=== PATIENT | female | born 2000 | race Hispanic/Latino ===

== ENCOUNTER 2022-02-24 06:21 | Day surgery (SDC) | payer BC ==
[2022-02-23 15:47] VITALS: BMI 27.2
[2022-02-24] MEDS ORDERED: CEFAZOLIN 2 GM VIAL ONE (06:36)
[2022-02-24] MEDS ORDERED: Lidocaine 1% MPF 2 ML VIAL ONE (06:36)
[2022-02-24] MEDS ORDERED: Sodium Chloride 0.9% 100 ML ONE (06:36)
[2022-02-24] MEDS ORDERED: Dexmedetomidine 200 MCG/2 ML VIAL ONE (07:03)
[2022-02-24] MEDS ORDERED: SUGAMMADEX SODIUM 200 MG/2 ML VIAL ONE (07:03)
[2022-02-24] MEDS ORDERED: Fentanyl 250 MCG/5 ML VIAL ONE (07:03)
[2022-02-24] MEDS ORDERED: Famotidine/PF 20 mg/2ml Vial ONE (07:10)
[2022-02-24] MEDS ORDERED: Midazolam HCl 2 mg/2 ml Vial ONE (07:10)
[2022-02-24] MEDS ORDERED: Scopolamine 1.5 mg/72 hour Patch ONE (07:10)
[2022-02-24] MEDS ORDERED: Bupivacaine/Epinephrine 0.25% 30 ML VIAL ONE (07:32)
[2022-02-24] MEDS ORDERED: NEOSTIGMINE 3 MG/3 ML SYR 3 MG/3 ML SYRINGE ONE (07:34)
[2022-02-24] MEDS ORDERED: Ondansetron PF 4 MG/2 ML Vial ONE (07:34)
[2022-02-24] MEDS ORDERED: GLYCOPYRROLATE/PF 0.2 MG/ML VIAL ONE (07:34)
[2022-02-24] MEDS ORDERED: Rocuronium Bromide 10 MG/ML (10ML VIAL) ONE (07:34)
[2022-02-24] MEDS ORDERED: Dexamethasone 20 MG/5 ML VIAL ONE (07:34)
[2022-02-24] MEDS ORDERED: PROPOFOL 200 MG/20 ML VIAL ONE (07:34)
[2022-02-24] MEDS ORDERED: FENTANYL 50 MCG/ML 1 ML VIAL ONE (08:41)
[2022-02-24] MEDS ORDERED: Ketorolac Tromethamine 30 MG/ML VIAL ONE (08:45)
[2022-02-24] MEDS ORDERED: HYDROcodone/Acetaminophen 5/325 mg Tablet ONE ×2 (09:32→10:34)
== END 2022-02-24 11:30 | disposition home or self-care (01) ==
LOC: SDC 06:21
PROVIDERS: ATTEND Surgery
PROC: 0FT44ZZ Resection of Gallbladder, Percutaneous Endoscopic Approach (ICD-10-PCS; principal; 2022-02-24)
DX: K80.10 Calculus of gallbladder with chronic cholecystitis without obstruction (principal); Z79.3 Long term (current) use of hormonal contraceptives; Z88.2 Allergy status to sulfonamides; Z88.8 Allergy status to other drugs, medicaments and biological substances
CPT/HCPCS: 88304; C1889; J1100; J1885; J2250; J2405; J2704; J3010; J3490; S0028